=== PATIENT | female | born 1995 | race Hispanic/Latino ===

== ENCOUNTER 2016-12-12 00:35 | Emergency (ER) | payer BC ==
[2016-12-12 00:55] VITALS: RESP 17
[2016-12-12] MEDS ORDERED: Lidocaine 1% Inj (20ml) IJ ONE (01:16)
[2016-12-12] MEDS ORDERED: Naproxen 500 MG TAB PO ONE (01:43)
[2016-12-12] MEDS ORDERED: Lidocaine 1% Inj (20ml) ONE (01:47)
[2016-12-12] MEDS ORDERED: Povidone Iodine Topical 10% Sol ONE (03:04)
--- NOTE | 2016-12-12 03:44 | ED PDOC ---
HPI: General Adult Time Seen by Provider: 12/12/16 00:42 Chief Complaint (Nursing): Finger,Hand,&Wrist History Per: Patient Additional Complaint(s): Pt. states earlier this evening she tripped and fell with a glass bottle in her R hand which broke causing laceration on the hand and the R 5th digit. Denies FB sensation, numbness, tingling, wrist pain, head injury. Past Medical History Reviewed: Historical Data, Nursing Documentation, Vital Signs Vital Signs: Last Vital Signs Temp 98.8 F 12/12/16 00:52 Pulse 89 12/12/16 00:52 Resp 17 12/12/16 00:52 BP 124/65 12/12/16 00:52 Pulse Ox 97 12/12/16 00:52 - Family History Family History: States: No Known Family Hx - Immunization History Hx Tetanus Toxoid Vaccination: Yes ("< 5 years ago") - Allergies Allergies/Adverse Reactions: Allergies Allergy/AdvReac Type Severity Reaction Status Date / Time No Known Allergies Allergy Verified 12/12/16 00:55 Review of Systems ROS Statement: Except As Marked, All Systems Reviewed And Found Negative Physical Exam - Physical Exam Appears: Positive for: Well, Non-toxic, No Acute Distress Skin: Positive for: Normal Color, Warm. Negative for: Rash Pulses-Radial (L): 2+ Pulses-Radial (R): 2+ Extremity: Positive for: Normal ROM (actively of entire R 5th digit), Other ( middle phalanx of R 5th digit with 1.5cm jagged laceration without tendon exposure; R 4th interdigital webspace with 1cm superficial jagged laceration) - ECG O2 Sat by Pulse Oximetry: 97 Procedures - Time-Out Type of Procedure: laceration repair Site of Procedure: R 5th digit and R 4th interdigtal webspace Correct Patient (with visual ID + MR# on ID Band): Yes Correct Procedure: Yes Correct Site Marked: Yes X-Ray Marked: Yes PA/Tech: Molly - Laceration/Wound Repair Laceration repair Wound Length (cm): 3.5 Wound's Depth, Shape: superficial Wound Explored: clean Irrigated w/ Saline (ccs): 300 Betadine Prep?: Yes Anesthesia: 1% Lidocaine Volume Anesthetic (ccs): 6 Wound Repaired With: Sutures Suture Size/Type: 5:0, proline Number of Sutures: 9 Layer Closure?: No Wound Complexity: Simple Splint Applied?: Yes (R 5th digit) Disposition - Clinical Impression Clinical Impression: Hand laceration, Finger laceration - Patient ED Disposition Is Patient to be Admitted: No - Disposition Referrals: Cody Phillip [Outside] Disposition: Routine/Home Disposition Time: 03:46 Condition: STABLE Additional Instructions: Suture removal in 10-14 days. Wound check in 2 days. Instructions: Laceration (ED) Forms: [facility] (Serbian) Print Language: CHADIAN
[2016-12-12 04:17] VITALS: BP 111/68; PULSE 76; TEMP 98.1; O2SAT 100
--- NOTE | 2016-12-13 11:12 | RAD ---
PROCEDURE: Right Hand Radiographs. HISTORY: trauma COMPARISON: None. FINDINGS: BONES: Normal. No fracture. JOINTS: Normal. No osteoarthritic changes. SOFT TISSUES: There appears to be disruption of the ulnar soft tissues at the level of the PIP joint 5th finger. No definitive radiopaque foreign body however clinical correlation with history recommended. OTHER FINDINGS: None. IMPRESSION: No evidence of acute displaced fracture nor dislocation. Disruption volar soft tissues at the level of the PIP joint right 5th finger. No radiopaque foreign bodies are identified
== END 2016-12-12 03:51 | disposition home or self-care (01) ==
LOC: H.ER 00:35
DX: S61.206A Unspecified open wound of right little finger without damage to nail, initial encounter (principal); W25.XXXA Contact with sharp glass, initial encounter; W01.0XXA Fall on same level from slipping, tripping and stumbling without subsequent striking against object, initial encounter; Y92.89 Other specified places as the place of occurrence of the external cause